=== PATIENT | male | born 1995 | race Caucasian/White ===

== ENCOUNTER 2023-09-25 23:27 | Emergency (ER) | payer MEDICAID, SELFPAY ==
[2023-09-25 23:28] VITALS: BP 152/93; PULSE 112; RESP 18; TEMP 36.9; O2SAT 100; BMI 21.7
--- NOTE | 2023-09-25 23:55 | EX.ED.DYSGE1 ---
HPI History of Present Illness Chief Complaint: Dental Informant: patient Narrative Narrative: Patient is a 27-year-old male with past medical history of PTSD and his dental abscesses. He states at this time he does not have the money to get his teeth fixed. He denies any recent trauma but states that over the past 1 to 2 days he has been having increasing pain in the right upper mouth that feels similar nature to his previous abscesses. He denies any fevers chills difficulty breathing or swallowing but with concern for infection comes in for evaluation. [facility] Medical History Dental abscess PTSD (post-traumatic stress disorder) Home Medications hydrocodone-acetaminophen 5-325mg 5mg-325mg 1 tab PO Q6H PRN PRN Pain 3 days #12 TABLETS 09/26/23 [Rx Last Taken Unknown] penicillin V potassium 500 mg tablet 500 mg PO 4X/DAY #40 tabs 09/26/23 [Rx Last Taken Unknown] Allergy/AdvReac Type Severity Reaction Status Date / Time No Known Allergies Allergy Verified 09/25/23 23:28 Social History Smoking Status: Current every day smoker tobacco type: cigarettes ROS ROS ED Constitutional Constitutional ED: Denies chills or fever(s) ENT ENT ED: Reports other Details: Positive dental pain Cardiovascular Cardiovascular: Denies chest pain Respiratory/Chest Respiratory/Chest: Denies cough or dyspnea Gastrointestinal Gastrointestinal: Denies abdominal pain, diarrhea, nausea or vomiting Genitourinary Genitourinary ED: Denies dysuria Musculoskeletal Musculoskeletal: Denies myalgias or neck pain Integumentary Denies rash Neurologic Neurologic: Denies headache(s) Hematologic/Lymphatic Hematologic/Lymphatic: Denies easy bleeding or easy bruising EXAM Physical Exam Const Vital Signs: 09/25/23 23:28 Temperature 98.5 F Temperature Source Temporal Pulse Rate 112 H Respiratory Rate 18 Blood Pressure 152/93 H Blood Pressure Mean 112 Pulse Ox 100 Positive well nourished and well developed General Appearance ED: well developed HEENT Reports moist mucous membranes HEENT Narrative: Patient has dental caries consistent with his reported history there is mild erythema and soft tissue swelling along the right second molar without obvious dental abscess noted. No signs of ANUG. No airway edema or compromise or signs of infection in the posterior pharynx. Eyes PERRL and EOMs intact bilaterally Neck supple Neck Narrative: No brawny edema in the submental space to suggest Adama's angina Resp normal respiratory effort and clear to auscultation bilaterally Cardio regular rate and regular rhythm Extremity normal to inspection Neuro oriented x3, CN's II-XII intact bilaterally and no sensory deficits noted Sensorium / Orientation: alert Motor Exam: strength 5/5 throughout Psych mental status grossly normal Skin no rashes or lesions noted MDM MDM MDM Narrative Medical decision making narrative: Patient presented to the ER complaining of dental pain with known history of dental caries. He does not have reported trauma to suggest acute dental fracture. Also physical exam shows no signs of ANUG or Ludewig's angina. Therefore I do not feel there is need for imaging or laboratory studies. History and physical exam indicate chronic dental caries leading to secondary infection. There is no obvious external dental abscess at this time so there is no need for incision and drainage. Therefore with developing underlying infection but no signs of systemic infection or airway compromise patient can be given oral medication and discharged home History & Record Review Discussion w/independent historian: Patient Discharge Plan Triage Chief Complaint: Dental ED Provider: Michael Schuler Dx/Rx/DC Orders Clinical Impression: Dental caries, Dental infection Instructions: Dental Abscess, ED Dental Pain Prescriptions: New penicillin V potassium 500 mg tablet 500 mg PO 4X/DAY Qty: 40 0RF hydrocodone-acetaminophen 5-325 mg tablet 1 tab PO Q6H PRN PRN (Reason: Pain) 3 Days Qty: 12 0RF Primary Care Provider: Care Physician,No Primary Referrals: NOT,DEFINED [Non-Staff] - Disposition Disposition: Home, Self Care
[2023-09-26] MEDS: Penicillin Vk 250 MG Tablet 500 MG PO (00:20)
[2023-09-26] MEDS: HYDROcodone Bitartrate/Apap 5/325 Tablet PO (00:20)
== END 2023-09-26 00:21 | disposition home or self-care (01) ==
PROVIDERS: Emergency Provider Emergency Medicine; Visit Provider Emergency Medicine
DX: K02.9 Dental caries, unspecified (principal); F17.210 Nicotine dependence, cigarettes, uncomplicated
CPT/HCPCS: 99283

== ENCOUNTER 2023-11-20 14:39 | Emergency (ER) | payer MEDICAID, SELFPAY ==
[2023-11-20 14:40] VITALS: BP 226/175; PULSE 129; RESP 20; TEMP 36.6; O2SAT 100; BMI 22.4
--- NOTE | 2023-11-20 14:47 | ED.RN ---
PT DECLINES FILING WORKER'S COMP ATTHIS TIME
[2023-11-20 15:59] LABS: Absolute Lymphocyte Count 2.33 X10^3/uL (0.83-4.51); Basophil# 0.11 X10^3/uL; Basophil% 1.2 % (0-1); Eosinophil# 0.57 X10^3/uL; Eosinophils% 6.4 % (0-5); Hematocrit 44.5 % (40-54); Hemoglobin 15.1 g/dL (13.0-16.5); Lymphocyte # 2.33 X10^3/ul (0.83-4.51); Mean Corp Hgb Conc 33.9 g/dL (32-36); Mean Corpuscular Hgb 31.5 pg (27.0-32.0); Mean Corpuscular Volume 92.9 fL (80-94); Mean Platelet Vol. 8.6 fl (6.2-12.0); Monocyte# 0.95 X10^3/uL; Monocyte% 10.6 % (0-10); NRBC Flagged by Analyzer 0 % (0-5); Neutrophil # 4.97 X10^3/uL (2.7-7.7); Neutrophil % 55.4 % (47-70); Platelet Count 344 K/mm3 (150-450); RBC Distribution Width CV 12.1 % (11.6-14.6); RBC Distribution Width SD 41.7 fl (35.1-43.9); Red Blood Count 4.79 M/mm3 (4.6-6.2)
--- NOTE | 2023-11-20 16:06 | ED.VIS.DYS ---
HPI History of Present Illness Chief Complaint: Occup Expose Informant: patient Narrative Narrative: Patient presents with difficulty getting a full breath. Patient states when he went to work yesterday he felt fine. He has not been ill recently. 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 There was another company that was in that day and aligning some of the tanks with [employer]. The people rolling it on the inside of tanks were using protective respiratory equipment. They recommend that people left the facility if they felt dizzy or had symptoms. He states that the odors were very strong. He left several times to get air. When he went home last night he felt a little bit short of breath. He had a little headache. He just did not feel well. No fevers or chills. No nausea vomiting. No rashes. The patient never used the material but he was in proximity of it. He states today he feels more short of breath. If he is just sitting still in bed he feels fine but when he tries to get active he does not feel he gets enough air. 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 [facility] Medical History Dental abscess PTSD (post-traumatic stress disorder) Home Medications hydrocodone-acetaminophen 5-325mg 5mg-325mg 1 tab PO Q6H PRN PRN Pain 3 days #12 TABLETS 09/26/23 [Rx Last Taken Unknown] penicillin V potassium 500 mg tablet 500 mg PO 4X/DAY #40 tabs 09/26/23 [Rx Last Taken Unknown] albuterol sulfate 90 mcg/actuation aerosol inhaler (Ventolin HFA) 2 puff inhalation Q4H PRN PRN Wheezing ##1 11/20/23 [Rx Last Taken Unknown] Allergy/AdvReac Type Severity Reaction Status Date / Time No Known Allergies Allergy Verified 11/20/23 14:44 Social History Smoking Status: Current every day smoker tobacco type: cigarettes ROS ROS ED ROS Narrative A complete review of systems was performed and is negative except as documented in the history of present illness. Some specific details below. Constitutional: No recent fevers or chills. EYE: No discharge, visual complaints, or pain. ENT: No difficulty swallowing. No swelling. No pain. No reflux symptoms. CV: No chest pain. No palpitations. Respiratory: See history of present illness. GI: No abdominal pain. No nausea vomiting diarrhea. No blood in stool. : No frequency dysuria or hematuria. Musculoskeletal: No recent trauma. No pains. No swelling. Skin: No rash. Nondiaphoretic. Neuro: No weakness or numbness. He did have a mild headache last night but that seems a bit better today. Endocrine: No polyuria or polydipsia. EXAM Physical Exam Narrative Exam Narrative: CONSTITUTIONAL: Patient is nontoxic in appearance. The patient looks comfortable. Work of breathing looks normal. HEENT: No notable trauma. Mucous membranes moist. No sinus tenderness. No indication of pain with swallowing. EYES: No conjunctival injection. No proptosis. No pallor. NECK:No JVD. No stridor. CARDIOVASCULAR: Regular rate at approximately 85 now. It was much quicker in triage. Regular rhythm. No notable murmur. No JVD. Tones are not muffled. Pulses are normal. RESPIRATORY: No respiratory distress. Breathing is unlabored. No wheezes. No rhonchi. No rales. No pain with a deep breath. No chest wall tenderness. Overall pulmonary exam seems very normal at this time. Saturations are normal at 100% on room air showing no hypoxia while sitting still. GASTROINTESTINAL: Not distended. Bowel sounds are normal. No tenderness. No guarding. No rebound. No palpable mass. No bruit is heard. GENITOURINARY: No tenderness over the bladder. No CVA tenderness. MUSCULOSKELETAL: Atraumatic. No peripheral edema. No cord. No tenderness along the deep venous system. No asymmetry. No distended veins. NEUROLOGICAL: Patient is alert and appropriate. No focal deficit noted. SKIN: No noted rashes. No diaphoresis. PSYCHIATRIC: Patient is calm. Mood is appropriate. Const Vital Signs: 11/20/23 14:40 11/20/23 16:13 11/20/23 16:55 Temperature 97.8 F Temperature Source Temporal Pulse Rate 129 H 95 Respiratory Rate 20 H 16 24 H Respiratory Pattern Normal Blood Pressure 226/175 H 182/115 H Blood Pressure Mean 192 137 Pulse Ox 100 97 Oxygen Delivery Method Room Air Room Air 11/20/23 16:55 11/20/23 17:07 Temperature Temperature Source Pulse Rate 104 H Respiratory Rate 18 Respiratory Pattern Blood Pressure 182/115 H 129/66 H Blood Pressure Mean 137 87 Pulse Ox 98 Oxygen Delivery Method Room Air MDM MDM MDM Narrative Medical decision making narrative: Patient was given a DuoNeb in case he has some component of bronchospasm that he is feeling. This was done even though I do not hear out right wheezing. I am also concerned of his significant elevation of blood pressure. He has been seen once here before for a dental condition where his blood pressure was nowhere near this high. Although there is one reading on the computer we are getting more. Evidently he did have another reading in triage it was also high but I do not have access to that. This alone may be causing his dyspnea but then since he is young and healthy I would have to suspect that this could be caused by his exposure. I also did pull up the safety data sheet for the material he was exposed to. It does have many potential issues including significant respiratory issues although specific treatment is not given. My independent interpretation of his two-view chest x-ray PA and lateral shows no acute process and that is consistent with the final reading. Patient CBC is normal. Patient's electrolytes are overall normal without any marked abnormalities. Patient's troponin is unmeasurable. Patient's liver function test are normal. Patient was given DuoNeb here. He states that helped him a lot. He has no symptoms even walking around in the halls. He did not desaturate. I think his symptoms are caused by the exposure. But his heart rate is down, his blood pressure is down, his oxygen level is good and he feels well. I think it safe to go home. We did discuss reasons to return. Lab Data Attestation: I reviewed the patient's lab results. Labs: Laboratory Results - last 24 hr 11/20/23 15:45 WBC 9.0 RBC 4.79 Hgb 15.1 Hct 44.5 MCV 92.9 MCH 31.5 MCHC 33.9 RDW Std Deviation 41.7 RDW Coeff of Ramon 12.1 Plt Count 344 MPV 8.6 Immature Gran % (Auto) 0.400 Neut % (Auto) 55.4 Lymph % (Auto) 26.0 Yell % (Auto) 10.6 H Eos % (Auto) 6.4 H Baso % (Auto) 1.2 H Absolute Neuts (auto) 5.0 Absolute Lymphs (auto) 2.33 Nucleated RBC % 0 Sodium 140 Potassium 4.1 Chloride 108 H Carbon Dioxide 27.0 Anion Gap 5 BUN 19 H Creatinine 1.14 Estim Creat Clear Calc 103.15 Est GFR (MDRD) Af Amer 97 Est GFR (MDRD) Non-Af 80 BUN/Creatinine Ratio 16.7 Glucose 104 Calcium 8.8 Total Bilirubin 0.20 AST 9 L ALT 24 Alkaline Phosphatase 89 Troponin I High Sens < 3 L B-Natriuretic Peptide 5.0 Total Protein 7.3 Albumin 3.7 Globulin 3.6 Albumin/Globulin Ratio 1.0 Radiography Diagnostic Testing: Clinical Impression(s) from Imaging Studies Chest X-Ray 11/20/23 16:24 IMPRESSION: No acute cardiopulmonary disease. Electronically Signed: David Fox MD at 16:41 EST , EKG Initial EKG: Comments: My independent interpretation of the patient's EKG shows a normal sinus rhythm with a rate of 74 which is more consistent with what I heard clinically. No ventricular ectopy. No acute ST elevation or depression. SC interval, QRS duration and QTc are all normal Discharge Plan Triage Chief Complaint: Occup Expose ED Provider: Peterson Doyle Dx/Rx/DC Orders Clinical Impression: Acute chemical pneumonitis, Acute bronchospasm Instructions: ED Chemical Inhalation Prescriptions: New albuterol sulfate [Ventolin HFA] 90 mcg/actuation HFA aerosol inhaler 2 puff inhalation Q4H PRN PRN (Reason: Wheezing) Qty: 1 0RF No Action penicillin V potassium 500 mg tablet 500 mg PO 4X/DAY Qty: 40 0RF hydrocodone-acetaminophen 5-325 mg tablet 1 tab PO Q6H PRN PRN (Reason: Pain) 3 Days Qty: 12 0RF Primary Care Provider: Care Physician,No Primary Referrals: Fast,Balbina, DO [Med Staff - Employment Interviewer] - 3-5 Days if not improving Care Physician,No Primary [Primary Care Provider] - Disposition Disposition: Home, Self Care
[2023-11-20] MEDS: Ipratropium/Albuterol Sulfate 3 ML AMPUL.NEB INHALATION (16:12)
[2023-11-20 16:13] VITALS: RESP 16
[2023-11-20 16:13] LABS: AST(SGOT) 9 U/L (15-37); Alanine Aminotransfer ALT/SGPT 24 U/L (16-61); Albumin, Serum 3.7 g/dL (3.2-5.0); Alkaline Phosphatase 89 U/L (45-117); Anion Gap 5 (5-15); BUN 19 mg/dL (7-18); BUN/Creat Ratio 16.7 RATIO (10-20); Calcium,Total 8.8 mg/dL (8.5-10.1); Chloride 108 mmol/L (98-107); Creatinine, Serum 1.14 mg/dL (0.70-1.30); EST Glomerular Filtration Rate 80 mL/min (>60); Est Glom Filt Rate - Afr Amer 97 mL/min (>60); Estimated Creatinine Clearance 103.15 ml/min; Globulin 3.6 g/dL (2.2-4.2); Glucose 104 mg/dL (74-106); Potassium 4.1 mmol/L (3.5-5.1); Protein, Total 7.3 g/dL (6.4-8.2); Sodium Level 140 mmol/L (136-145); Troponin-I HS < 3 pg/mL (3.0-78.0)
--- NOTE | 2023-11-20 16:24 | RAD_ITS ---
EXAM: XR CHEST, 2 VIEWS CLINICAL INDICATION: SOB TECHNIQUE: Frontal and lateral views of the chest. COMPARISON: No relevant prior studies available. FINDINGS: LUNGS AND PLEURAL SPACES: Normal. No consolidation or edema. No pneumothorax. No effusion. HEART: Normal heart size. MEDIASTINUM: No mediastinal or hilar mass. BONES/JOINTS: No acute abnormality. RAD/Chest PA and Lateral IMPRESSION: No acute cardiopulmonary disease. Electronically Signed: David Fox MD at 16:41 EST ,
[2023-11-20 16:55] VITALS: BP 182/115; PULSE 95; RESP 24; O2SAT 97
[2023-11-20 17:07] VITALS: BP 129/66; PULSE 104; RESP 18; O2SAT 98
[2023-11-20 17:11] VITALS: O2SAT 98
== END 2023-11-20 19:17 | disposition home or self-care (01) ==
PROVIDERS: Emergency Provider Emergency Medicine; Visit Provider Emergency Medicine
DX: T59.94XA Toxic effect of unspecified gases, fumes and vapors, undetermined, initial encounter (principal); J68.0 Bronchitis and pneumonitis due to chemicals, gases, fumes and vapors; R03.0 Elevated blood-pressure reading, without diagnosis of hypertension; J98.01 Acute bronchospasm; F17.210 Nicotine dependence, cigarettes, uncomplicated
CPT/HCPCS: 71046; 80053; 83880; 84484; 85025; 93005; 94640; 99285; A4216

== ENCOUNTER 2025-02-14 18:25 | Emergency (ER) | payer MEDICAID, SELFPAY ==
[2025-02-14 18:26] VITALS: BP 157/92; PULSE 128; RESP 18; TEMP 36.2; O2SAT 100; BMI 22.7
[2025-02-14 18:29] VITALS: BP 157/92; PULSE 128; RESP 18; TEMP 36.2; O2SAT 100
--- NOTE | 2025-02-14 18:38 | EX.ED.DYSGE1 ---
HPI <HONORIO Hernández - Last Filed: 02/14/25 18:48> History of Present Illness Chief Complaint: Dental Narrative Narrative: Patient is a 29-year-old male with history of drug abuse who [facility] with complaints of pain to the right lower jaw. Patient has known dental caries, patient has been seen before for dental infections. He states he does not go to the dentist because he is scared of them. He states he is here for antibiotics. He denies any fever or chills. He has noticed some swelling to the lower jaw. Denies any fever or chills. [facility] <HONROIO Hernández - Last Filed: 02/14/25 18:48> [facility] Medical History Dental abscess PTSD (post-traumatic stress disorder) Home Medications ?Medication ?Instructions ?Recorded ?Last Taken ?Type hydrocodone-acetaminophen 5-325mg 1 tab PO Q6H PRN PRN Pain 3 days 09/26/23 Unknown Rx 5mg-325mg #12 TABLETS penicillin V potassium 500 mg 500 mg PO 4X/DAY #40 tabs 09/26/23 Unknown Rx tablet albuterol sulfate 90 mcg/actuation 2 puff inhalation Q4H PRN PRN 11/20/23 Unknown Rx aerosol inhaler (Ventolin HFA) Wheezing ##1 ibuprofen 600 mg tablet 600 mg PO Q6H PRN PRN pain #20 02/14/25 Unknown Rx TABLETS penicillin V potassium 500 mg 500 mg PO 4X/DAY #40 tabs 02/14/25 Unknown Rx tablet Allergy/AdvReac Type Severity Reaction Status Date / Time No Known Allergies Allergy Verified 02/14/25 18:26 Social History Smoking Status: Current every day smoker tobacco type: cigarettes ROS <HONORIO Hernández - Last Filed: 02/14/25 18:48> ROS ED ROS Narrative Constitutional: Negative for fever, chills, weight loss, weakness Eyes: Negative for vision loss, vision change, double vision ENT: Negative for any sore throat, ear pain, congestion. Positive pain of the right lower jaw Cardiovascular: Negative for any chest pain, tightness, palpitations Respiratory: Negative for any cough, sputum production, hemoptysis, dyspnea, dyspnea on exertion, orthopnea Gastrointestinal: Negative for any abdominal pain, nausea, vomiting, diarrhea, constipation, blood in stool, blood in vomit : Negative for any urinary frequency, dysuria, retention, blood in urine Muscle skeletal: Negative for any neck pain, back pain Neurological: Negative for any headache, syncope, dizziness Skin: Negative for any rashes, itching, abrasions, lacerations Psychiatric: Negative for any depression, anxiety, stress, suicidal ideation, homicidal ideation Hematologic: Negative for any excessive bruising, easy bleeding EXAM <HONORIO Hernández - Last Filed: 02/14/25 18:48> Physical Exam Narrative Exam Narrative: Vital signs reviewed. HEET: Head normocephalic atraumatic, TMs clear bilaterally. Posterior pharynx is clear, moist mucous membranes. Nares clear bilaterally. Patient has no trismus. Patient has poor dentition throughout exam however patient does have multiple teeth in different level of decay. Patient is have some lymphadenopathy to the submandibular area. There is no fluctuance noted in the gumline. Neck: Supple with no lymphadenopathy or tenderness. No signs of meningismus. Cardiac: Regular rate and rhythm no murmurs gallops or rubs, equal peripheral pulses bilaterally. Respiratory: Lungs clear to auscultation bilaterally. No chest tenderness. Abdomen: Soft, nontender, nondistended. No abdominal bruit or pulsatile masses. No hepatosplenomegaly Extremities: No peripheral edema, no signs of gross trauma or deformity. Active full range of motion of all extremities. Neuro: Cranial nerves II through XII intact, no focal neurological deficits. Skin: Clean dry and intact with no rash, purpura, petechiae, vesicles or pustules. Backs/flank: No CVA tenderness, no midline spinal tenderness, no deformity. Psych: Normal mood and affect. No SI, HI or acute psychosis. Const Vital Signs: 02/14/25 18:26 02/14/25 18:29 Temperature 97.1 F L 97.1 F L Temperature Source Temporal Temporal Pulse Rate 128 H 128 H Respiratory Rate 18 18 Blood Pressure 157/92 H 157/92 H Blood Pressure Mean 113 113 Pulse Ox 100 100 Oxygen Delivery Method Room Air Room Air Positive well nourished and well developed General Appearance ED: well developed <Dr. Eddie Huerta MD - Last Filed: 02/14/25 20:17> Physical Exam Const Vital Signs: 02/14/25 18:26 02/14/25 18:29 Temperature 97.1 F L 97.1 F L Temperature Source Temporal Temporal Pulse Rate 128 H 128 H Respiratory Rate 18 18 Blood Pressure 157/92 H 157/92 H Blood Pressure Mean 113 113 Pulse Ox 100 100 Oxygen Delivery Method Room Air Room Air [facility] <HONORIO Hernández - Last Filed: 02/14/25 18:48> [facility] Treatment and Re-Evaluation :: Differential diagnosis includes however is not limited to: Irreversible pulpitis, dental caries, fractured tooth Patient appears generally well, vital signs are stable, patient is nontoxic-appearing. Presenting to the emergency department for complaints of pain to the right lower jaw. Pay states he does have a long history of dental infections. He states that he is scared to go to the dentist does not want to go. However I did speak with him about the importance of going. Patient will be started on Pen-Vee K, patient given a prescription for ibuprofen. Patient will also be given a dental referral list. He does also need to follow-up with a PCP regarding his blood pressure. At this time, patient will take the antibiotics till finished. All questions answered, stable for discharge. <Dr. Eddie Huerta MD - Last Filed: 02/14/25 20:17> [facility] Narrative Medical decision making narrative: I have personally performed a face to face assessment of the patient and have reviewed the ELVIN Note. I performed a substantive portion of the visit including all aspects of the following. My caruso findings include: History is remarkable for bump to the angle of mandible on the right side. He has dental pathology. He has been told he needs his tooth extracted. He did not follow-up. He was seen for similar treated with Pen-Vee K. He denies fever, chills night sweats. Nuys any history of medic fever, mitral prolapse, SBE. He is a former drug user. He has no allergies to antibiotics. He denies change in voice. Nuys drooling. He denies difficulty opening closing his mouth. He has no skin lesions Exam is remarkable for multiple dental caries with erosion down to the gum on the left side. He has evidence of dental disease on the right side as well. He has a palpable tender mobile firm submandibular node on the right. There is no evidence of peridental abscess. He has no trismus. There is no dysphonia. Trachea is midline. There is no stridor. Heart is regular. Rate is normal. There is no murmur, gallop or rub. There are no dermatologic lesions noted splinter hemorrhages or Janeway lesions Osler nodes etc. Medical Decision Making patient was given a dental sheet. He was informed the importance of having his teeth work done. He was prescribed antibiotics and discharged to home Other additions or changes: [None] Discharge Plan Triage Chief Complaint: Dental ED Midlevel Provider: Ishaan Juarez ED Provider: Eddie Huerta Dx/Rx/DC Orders Clinical Impression: Dental abscess, Toothache, Dental caries extending into pulp, Dental caries limited to enamel Instructions: Dental Abscess, ED Tooth Abscess Prescriptions: New penicillin V potassium 500 mg tablet 500 mg PO 4X/DAY Qty: 40 0RF ibuprofen 600 mg tablet 600 mg PO Q6H PRN PRN (Reason: pain) Qty: 20 0RF No Action penicillin V potassium 500 mg tablet 500 mg PO 4X/DAY Qty: 40 0RF hydrocodone-acetaminophen 5-325 mg tablet 1 tab PO Q6H PRN PRN (Reason: Pain) 3 Days Qty: 12 0RF albuterol sulfate [Ventolin HFA] 90 mcg/actuation HFA aerosol inhaler 2 puff inhalation Q4H PRN PRN (Reason: Wheezing) Qty: 1 0RF Primary Care Provider: Care Physician,No Primary Referrals: [facility] [Provider Group] Care Physician,No Primary [Primary Care Provider] - Activity Restrictions/Additional Instructions: You need to see a dentist. Also your blood pressure was elevated today, you need to follow-up with this as well. Print Language: Bahraini Disposition Disposition: Home, Self Care Discharge Date/Time: 02/14/25 18:51
[2025-02-14] MEDS: Penicillin Vk 250 MG Tablet 500 MG PO (18:43)
== END 2025-02-14 18:51 | disposition home or self-care (01) ==
PROVIDERS: Emergency Provider Emergency Medicine; Visit Provider Emergency Medicine
DX: K04.7 Periapical abscess without sinus (principal); K02.9 Dental caries, unspecified; R68.84 Jaw pain; F17.210 Nicotine dependence, cigarettes, uncomplicated
CPT/HCPCS: 99282